=== PATIENT | male | born 1945 | race Caucasian/White ===

== ENCOUNTER 2016-10-16 11:32 | Outpatient (CLI) | payer MEDICARE ==
[~2016-10-16] VITALS: Ht 182.9 cm; Wt 98.5 kg
[~2016-10-16 11:32] MED LIST: ASP81CT PO; ATOR20TA66 PO; BP MED; DULO20CA PO; GBPN300C PO; GLUC-113 PO; HYDR4TAB PO; MORP15TA4 PO; OMEP10CA4 PO; OMG1KC PO; PREG25CA PO; Q10; SSD50T TOP
--- OUTSIDE RECORDS SUMMARY | 2016-10-16 11:37 | XMS REPORT | Continuity of Care Document ---
Author Author [facility] Organization [facility] Address Unknown Phone Unavailable Care Team Providers Care Rn Diabetes Educator Name Role Phone Mxawell Pacheco PCP [phone] Source Comments Some departments are not documenting in the electronic medical record. If you do not see the information that you expected, contact Release of Information in the Health Information Management department at [phone] for further assistance in locating additional records.[facility] Active Allergies and Adverse Reactions No Known Allergies Current Medications Prescription Sig. Disp. Refills Start End Date Status Date atorvastatin (LIPITOR) 80 Take 80 mg by mouth Active mg tablet daily. amLODIPine (NORVASC) 5 mg Take 5 mg by mouth daily. Active tablet OMEPRAZOLE (PRILOSEC PO) Take by mouth. Active TAMSULOSIN HCL (FLOMAX Take by mouth. Active PO) UBIDECARENONE (CO Q-10 Take by mouth. Active PO) ASPIRIN PO Take by mouth. Active ACETAMINOPHEN (TYLENOL Take by mouth. Active PO) MELATONIN PO Take by mouth. Active magnesium citrate oral Take 296 mL by mouth once 1 Bottle 0 10/22/19 10/22/19 Active solution for 1 dose. Take as 17 17 directed day prior to surgery on 10/22/2016. Active Problems Problem Noted Date Prostate cancer (HCC) 07/19/2016 Overview: PSA (07/12/2016)=7.09 ng/mL. TRUS Prostate Vol (07/19/2016)=48.28 mL. PNBx (07/19/2016): cT1c; (R) [place] 3+3=6, 2/6 cores, 5%; Dr. Lerner. (B) Nerve Sparing Robotic Asst Lap Prostatectomy (RALP) -- TBD; Dr. Hammond. L ast Assessment & Plan: I had an extensive consultation with the patient today reviewing the spectrum of prostate cancer treatment options, including the pros and cons and risks and benefits of each. Surgery (RRP, RALP) Radiation (XRT) Risks and complications of surgery, especially stress incontinence and erectile dysfunction reviewed in detail. Differences between robotic prostatectomy and radical retropubic prostatectomy reviewed. Typical benefit of robotic prostatectomy include less blood loss and shorter hospital stay, but otherwise results are similar in regards to oncologic outcome, stress incontinence and erectile dysfunction compared to retropubic prostatectomy. Risks and complications of radiation, reviewed. After careful consideration, the patient would like to proceed with (B) NS RALP --> next available in [place], [place]. (B) Nerve Sparing Robotic Asst Lap Prostatectomy -- 10/23/2016; Dr. Hammond, @ [place], [place]. Possible risks & complications of surgery including but not limited to bleeding, infection, allergic reaction, heart & blood pressure problems, incontinence, erectile dysfunction, bladder neck contracture, urine leak, lymphocele, hernias, anastomotic breakdown, need for percutaneous nephrostomy tube and/ or abdominal drain placement, wound complications, nerve injury due to positioning, injury to nearby contiguous organs or structures, hernias, robot malfunction, conversion to open surgery, and additional surgical risks include, but not limited to DVT, heart attack, stroke, pulmonary embolism, respiratory arrest, & . Pt demonstrates an understanding & wishes to proceed. Surgical consent signed in clinic today. Pre-op instructions provided to pt & will be addressed by anesthesia at [facility] ([place], [place]). Bowel prep instructions specifically reviewed w/ pt, printed & provided on AVS. AVS given to pt. Rx: Mag Citrate handed to pt, as a reminder to order picker/assembler OTC med. Consults: none. All questions answered to his satisfaction. ED (erectile dysfunction) of organic origin Most Recent Encounters Date Type Specialty Providers Description 09/10/2016 Office Visit Urology Esdras Hammond MD Prostate cancer (HCC) (Primary Dx); ED (erectile dysfunction) of organic origin 08/23/2016 Ancillary Radiology Outpatient, Radiologist Diagnosis unknown Orders (Primary Dx) 08/07/2016 Telephone Oncology Esdras Hammond MD Navigation Assessment 07/29/2016 Hospital Radiology Encounter 07/29/2016 Hospital Radiology Encounter Social History Tobacco Use Types Packs/Day Years Used Date Current Some Day Smoker Pipe Smokeless Tobacco: Never Used Alcohol Use Drinks/Week oz/Week Comments Yes 2 Shots of 1.2 liquor Last Filed Vital Signs Vital Sign Reading Time Taken Blood Pressure 123/86 09/10/2016 1:03 PM CHIEF PSYCHOLOGIST Pulse 71 09/10/2016 1:03 PM CHIEF PSYCHOLOGIST Temperature - - Respiratory Rate - - Height 1.829 m (6') 09/10/2016 1:03 PM CHIEF PSYCHOLOGIST Weight 96.888 kg (213 lb 9.6 oz) 09/10/2016 1:03 PM CHIEF PSYCHOLOGIST Body Mass Index 28.96 09/10/2016 1:03 PM CHIEF PSYCHOLOGIST Oxygen Saturation - - Plan of Care Health Maintenance Due Date Last Done Comments Hepatitis C Screening 1945 Physical (Comprehensive) 1953 Exam Pertussis Vaccine 1957 Tetanus Vaccine 1963 Colorectal Cancer 1996 Screening Shingles Vaccine 2006 Prevnar/Pneumovax (#1) 2011 Influenza Vaccine 06/13/2016 Results from Last 3 Months NM PET/CT EXTERNAL IMAGING (07/29/2016 12:15 AM) Narrative This order has been auto finalized and does not contain a result. CT ABD/PEL EXTERNAL IMAGING (07/29/2016) Narrative This order has been auto finalized and does not contain a result.
[2016-10-16] MEDS ORDERED: ATOR80TA76 PO (11:57)
[2016-10-16] MEDS ORDERED: OXYC-465 PO (11:57)
[2016-10-16] MEDS ORDERED: MELA5TAB14 PO (11:57)
[2016-10-16] MEDS ORDERED: PANT40TA3 PO (11:57)
[2016-10-16] MEDS ORDERED: [UNRECOGNIZED DRUG - REMARK] PO (11:57)
[2016-10-16] MEDS ORDERED: UBID100C44 PO (11:57)
[2016-10-16] MEDS ORDERED: AMLO5TAB2 PO (11:57)
[2016-10-16] MEDS ORDERED: OMEP40CA36 PO (11:57)
[2016-10-16] MEDS ORDERED: TAMS0.4C2 PO (11:57)
[2016-10-16 12:11] VITALS: BP 169/118
[2016-10-16 12:59] LABS: BASOPHILS % (AUTO) 1 % (0-10); EOSINOPHILS # (AUTO) 0.1 10^3/uL (0.0-0.3); EOSINOPHILS % (AUTO) 3 % (0-10); LYMPHOCYTES # (AUTO) 1.7 X 10^3 (1.0-4.0); LYMPHOCYTES % (AUTO) 35 % (12-44); MEAN CORPUSCULAR HEMOGLOBIN 30 PG (25-34); MEAN CORPUSCULAR HGB CONC 35 G/DL (32-36); MEAN CORPUSCULAR VOLUME 86 FL (80-99); MEAN PLATELET VOLUME 11.1 FL (7.4-10.4); MONOCYTES # (AUTO) 0.3 X 10^3 (0.0-1.0); MONOCYTES % (AUTO) 7 % (0-12); NEUTROPHILS # (AUTO) 2.6 X 10^3 (1.8-7.8); NEUTROPHILS % (AUTO) 55 % (42-75); PLATELET COUNT 186 10^3/uL (130-400); RED BLOOD COUNT 5.38 10^6/uL (4.35-5.85); RED CELL DISTRIBUTION WIDTH 13.6 % (10.0-14.5); WHITE BLOOD COUNT 4.8 10^3/uL (4.3-11.0)
[2016-10-16 13:15] LABS: ANION GAP 11 MMOL/L (5-14); BLOOD UREA NITROGEN 14 MG/DL (7-18); BUN/CREATININE RATIO 16; CALCIUM 9.5 MG/DL (8.5-10.1); CARBON DIOXIDE 21 MMOL/L (21-32); CHLORIDE 108 MMOL/L (98-107); GFR ESTIMATED > 60; GLUCOSE 112 MG/DL (70-105); SODIUM 140 MMOL/L (135-145)
== END 2016-10-16 14:00 | disposition home or self-care (01) ==
LOC: PREOP 11:32
PROVIDERS: ATTEND Urology
DX: Z01.810 Encounter for preprocedural cardiovascular examination (principal); Z01.812 Encounter for preprocedural laboratory examination; Z11.2 Encounter for screening for other bacterial diseases; C61 Malignant neoplasm of prostate
CPT/HCPCS: 36415; 80048; 85025; 87081; 93005

== ENCOUNTER 2016-10-23 05:54 | Inpatient (IN) | payer MEDICARE ==
[~2016-10-23] VITALS: Ht 182.9 cm; Wt 98.5 kg
[~2016-10-23 05:54] MED LIST changes: +AMLO5TAB2 PO; +ATOR80TA76 PO; +MELA5TAB14 PO; +OMEP40CA36 PO; +OXYC-465 PO; +PANT40TA3 PO; +TAMS0.4C2 PO; +UBID100C44 PO; +[UNRECOGNIZED DRUG - REMARK] PO
--- OUTSIDE RECORDS SUMMARY | 2016-10-23 05:58 | XMS REPORT | Continuity of Care Document ---
Author Author [facility] Organization [facility] Address Unknown Phone Unavailable Care Team Providers Care Staff Research Associate Name Role Phone Maxwell Pacheco PCP [phone] Source Comments Some departments are not documenting in the electronic medical record. If you do not see the information that you expected, contact Release of Information in the Health Information Management department at [phone] for further assistance in locating additional records.[facility] Active Allergies and Adverse Reactions No Known [...] mouth once 1 Bottle 0 10/22/19 10/22/19 solution for 1 dose. Take as 17 17 directed day prior to surgery on 10/22/2016. Active Problems Problem Noted Date Prostate cancer (HCC) 07/19/2016 Overview: PSA (07/12/2016)=7.09 ng/mL. TRUS Prostate Vol (07/19/2016)=48.28 mL. PNBx (07/19/2016): cT1c; (R) [place] 3+3=6, 2/6 cores, 5%; Dr. Lerner. (B) [...] (B) NS RALP --> next available in [place], [place]. (B) Nerve Sparing Robotic Asst Lap Prostatectomy -- 10/23/2016; Dr. Hammond, @ [place], [place]. Possible risks & complications of surgery [...] will be addressed by anesthesia at [facility] ([place], [place]). Bowel prep instructions specifically reviewed w/ pt, printed & provided on AVS. AVS given to pt. Rx: Mag Citrate handed to pt, as a reminder to pickle water pump operator OTC med. Consults: none. All questions answered [...] Taken Blood Pressure 123/86 09/10/2016 1:03 PM HEARING CARE PROFESSIONAL Pulse 71 09/10/2016 1:03 PM HEARING CARE PROFESSIONAL Temperature - - Respiratory Rate - - Height 1.829 m (6') 09/10/2016 1:03 PM HEARING CARE PROFESSIONAL Weight 96.888 kg (213 lb 9.6 oz) 09/10/2016 1:03 PM HEARING CARE PROFESSIONAL Body Mass Index 28.96 09/10/2016 1:03 PM HEARING CARE PROFESSIONAL Oxygen Saturation - - Plan of Care [...]
[2016-10-23] MEDS ORDERED: ceFAZolin 1,000 MG (ANCEF) VIAL ONE (06:19)
[2016-10-23] MEDS ORDERED: NORMAL SALINE (BAXTER MINI) 50 ML IV ONE (06:19)
[2016-10-23 06:39] VITALS: BP 158/90
[2016-10-23] MEDS ORDERED: LIDOCAINE JELLY 2% (XYLOCAINE) 5 ML TUBE ONE (06:40)
[2016-10-23] MEDS ORDERED: ROCURONIUM 50 MG/5 ML (ZEMURON) VIAL IV ONE ×2 (06:40→08:19)
[2016-10-23] MEDS ORDERED: MIDAZOLAM 2 MG/2 ML (VERSED) VIAL ONE (06:40)
[2016-10-23] MEDS ORDERED: DEXAMETHASONE PF 10 MG/ML (DECADRON) VIAL ONE (06:40)
[2016-10-23] MEDS ORDERED: proPOfol 200 MG/20 ML (DIPRIVAN) VIAL IV ONE (06:40)
[2016-10-23] MEDS ORDERED: fentaNYL INJECTION 250 MCG/5 ML AMP ONE (06:40)
[2016-10-23] MEDS ORDERED: LIDOCAINE PF 2% 10 ML (XYLOCAINE) AMP ONE (06:40)
[2016-10-23] MEDS ORDERED: ONDANSETRON 4 MG/2 ML (SDV) Z0FRAN ONE (06:40)
[2016-10-23] MEDS ORDERED: FAMOTIDINE 20MG/2ML IV (PEPCID) IV ONE (06:45)
[2016-10-23] MEDS: LACTATED RINGERS 1,000 ML IV PRN ×2 (06:49→12:44)
[2016-10-23] MEDS ORDERED: ARTIFICIAL TEARS OINT (LACRI-LUBE) 3.5 GM TUBE ONE (06:56)
[2016-10-23] MEDS ORDERED: fentaNYL INJECTION 100 MCG/2 ML AMP ONE (06:57)
[2016-10-23] MEDS ORDERED: ceFAZolin 1 GM/NS 50 ML IVPB IV ONE ×2 (07:00)
[2016-10-23] MEDS ORDERED: fentaNYL INJECTION 100 MCG/2 ML AMP IV ONE (07:15)
[2016-10-23] MEDS ORDERED: ceFAZolin INJECTION 1,000 MG in NORMAL SALINE (BAXTER MINI) 50 ML IV ONE (11:15)
[2016-10-23] MEDS ORDERED: SEVOFLURANE (ULTANE) 15 ML INHAL SOLN ONE (12:08)
[2016-10-23] MEDS ORDERED: LACTATED RINGERS 1,000 ML IV ONE (12:12)
[2016-10-23] MEDS ORDERED: HYDROmorphone (DILAUDID) 2 MG/ML VIAL ONE (12:24)
[2016-10-23] MEDS ORDERED: ONDANSETRON 4 MG/2 ML (SDV) Z0FRAN IVP PRN (12:30)
[2016-10-23] MEDS ORDERED: SIMETHICONE 80 MG (MYLICON) CHEW PO PRN (12:30)
[2016-10-23] MEDS ORDERED: MEPERIDINE (DEMEROL) INJ 50 MG/ML IVP PRN (12:30)
[2016-10-23] MEDS ORDERED: PROMETHAZINE INJ 25 MG/ML (PHENERGAN) AMP IVP PRN (12:30)
[2016-10-23] MEDS ORDERED: ANTACID SUSP 30 ML UDC (MYLANTA) PO PRN (12:30)
[2016-10-23] MEDS ORDERED: DOCUSATE SODIUM 100 MG (COLACE) CAP PO PRN (12:30)
[2016-10-23] MEDS ORDERED: ONDANSETRON 4 MG/2 ML (SDV) Z0FRAN IV PRN (12:30)
[2016-10-23] MEDS: morphine INJ 10 MG/ML 1ML (SYR OR VIAL) IVP PRN ×2 (12:34→12:50)
[2016-10-23] MEDS: morphine INJ 10 MG/ML 1ML (SYR OR VIAL) ONE ×2 (12:34→18:20)
[2016-10-23] MEDS: HYDROmorphone (DILAUDID) 2 MG/ML VIAL IVP PRN ×3 (12:58→13:11)
[2016-10-23] MEDS ORDERED: KETOROLAC 15 MG/ML VIAL ONE (13:52)
[2016-10-23] MEDS: KETOROLAC 30 MG/ML VIAL IV PRN ×2 (14:02→20:22)
--- NOTE | 2016-10-23 14:05 | OPERATIVE REPORT ---
PROCEDURE PHYSICIAN: SAMANTHA KUO DATE OF PROCEDURE: 10/23/2016 PREOPERATIVE DIAGNOSIS: Stage T1C [place] 6 adenocarcinoma of the prostate. POSTOPERATIVE DIAGNOSIS: Stage T1C [place] 6 adenocarcinoma of the prostate. OPERATIVE PROCEDURE: Robot assisted laparoscopic prostatectomy with a bilateral nerve-sparing approach. SURGEON: Katja Kuo RESIDUE FURNACE OPERATOR SURGEON: Dr. Sukhjinder Navarro ANESTHESIA: General endotracheal anesthesia. BLOOD LOSS: 100 mL. COMPLICATIONS: None SPECIMEN: Prostate and seminal vesicles. INDICATIONS FOR THE OPERATION: Mr. Crandall is a 70-year-old gentleman with newly diagnosed low risk prostate cancer. He has a large prostate and some erectile dysfunction and multiple other medical problems but basically had felt that after long counseling he wanted to do a robotic prostatectomy. I went over all of the risk and benefits, advantages and disadvantages of the nerve-sparing approach. He knows that he does not need lymph nodes taken because he has a very low risk cancer. After counseling he has decided to move forward with the operation. All questions were answered to his satisfaction. He signed informed consent, had IV antibiotics and mechanical bowel prep. DESCRIPTION: After this man was prepped and draped in the usual sterile fashion, placed in low lithotomy position, padded throughout on his elbows, hands and legs, I had SCDs applied and IV antibiotics administered, we placed an 18 Tamazight eklutna tip catheter with a 2-0 Vicryl tied on the end of it into his bladder. We then marked out our port sites in the usual fashion, lifted up on the abdominal wall with towel clamps on either side of the supraumbilical region, made a small punch in the midline, introduced the Veress needle into the abdomen. After ensuring we were intraperitoneal using a drip test, we completed insufflation at 15 cm of pressure. We then extended our incision in the midline and placed a non-bladed 10/12 mm trocar into the abdomen. Through this port, we examined intraabdominal contents and found a few adhesions from the sigmoid colon to the left inguinal area. Once I placed the rest of the trocars in the usual fashion, we put the patient in steep Trendelenburg position and docked the robot. I began with my typical instrumentation taking down adhesions and allowing the bowel to drop back toward the head. Then I went across the urachal remnants, followed the medial umbilical ligaments back to the vas deferens. Once I reached the vas deferens, I harvested a piece of that to bolster the bladder neck anastomosis. I then incised the endopelvic fascia and took down the puboprostatic ligaments and realized right away that this is a very large prostate. We used endovascular stapler to staple across the dorsal venous complex and then switched to a 30 degree down orientation of my lens. I then began the dissection between the base of the prostate and the bladder neck until I exposed the Vazquez catheter at which time I saw a fair amount of prostate exposed or extending into the bladder neck. I then introduced a Riley-Marshall just above the pubic bone into the abdomen, and lifted up on the end of the Vicryl suture placing the Vazquez catheter on penile traction. I then went across the posterior bladder neck ensuring we did not injure the ureters and completely dissected the bladder from the base of the prostate until seminal vesicles were exposed. I dissected out the entire seminal vesicles bilaterally and transected the vas deferens 1 cm proximal to their junction with the prostate. I incised the nonbiased fascia down to perirectal fat and basically used one Hem-o-Kate clip on each side and clipped on the vascular pedicle and then transect. I released the Vazquez catheter traction and did a high anterior release on the endopelvic fascia bilaterally, dissected the neurovascular bundles off from the base of the prostate to the apex using scissors only and no electrocautery. Once they were completely released, I switched back to 0 degree lens. I then replaced the Vazquez catheter and took down what was left of the dorsal venous complex and dissected out the longest urethral stump I could. I then transected the urethra, removed the Vazquez catheter and inspected the prostate and found a very clean dissection and it was placed in the EndoCatch bag for later removal. I irrigated the pelvis and saw no significant bleeding and introduced into the abdomen two 8 1/2 inch pieces of 2-0 Monocryl tied together and sutured across a piece of vas deferens. I started at the 6 o'clock position with both sutures and began my anastomosis of the urethral stump to the bladder neck and when I reached the midway point at the 3 and 9 o'clock position of the bladder neck, I stopped and realized I would have to do a bladder neck reconstruction. I could see the ureters throughout and felt that I should reconstruct in a tennis-racquet fashion using 4-0 Monocryl in an interrupted fashion. After [address], I removed that needle from the abdomen and finished my running suture on the left and right side. I transitioned my stitch across the tennis-racquet reconstruction and removed both needles from the abdomen. I then tied across the midline over a 20 Tamazight silastic catheter with 10 cc in the balloon. I tied those down water tight. Made sure that I irrigated with approximately 200 cc's of irrigant twice and saw no leak. I irrigated until the bladder was clear, at which time I then moved the EndoCatch bag to midline for later removal and placed a 19 Tamazight Anatoly drain next to the anastomosis. Brought site in the left lower quadrant and sutured in place with 2-0 silk interrupted suture. We then undocked the robot, removed all port sites, extended our incision in the midline and removed the prostate. I grasped the anterior rectus fascia and closed with 5 sutures of interrupted number 1 Vicryl in a yslyjq-nw-sbrnh fashion. After ensuring we had not grabbed any bowel underneath, we tied down the abdominal wall, sutures were water tight, irrigated all wounds and closed the skin using 4-0 undyed Monocryl ion a running subcuticular fashion. I then placed Dermabond on all wounds, extubated the patient. Transported him to recovery in excellent condition. Job ID: [id number] Dictated Date: 10/23/2016 12:22:09 Protection Engineer Date: 10/23/2016 13:13:37 / priyanka
[2016-10-23] MEDS: HYDROcodone/APAP 7.5 MG/325 MG (LORTAB, LORCET PLUS) TABLET PO PRN ×2 (15:11→21:16)
[2016-10-23] MEDS: morphine INJ 4 MG/ML 1 ML (VIAL/SYRINGE) IVP PRN ×3 (15:11→22:37)
[2016-10-23 16:00] VITALS: BP 135/76
[2016-10-23] MEDS: LACTATED RINGERS 1,000 ML IV SCH ×2 (18:19→23:18)
[2016-10-23 20:00] VITALS: BP 119/85
[2016-10-23] MEDS ORDERED: MELATONIN 3 MG TABLET PO PRN (21:00)
[2016-10-23] MEDS: BACITRACIN OINTMENT 28 GM TUBE TOP SCH (21:17)
[2016-10-23 23:03] VITALS: BP 115/68
[2016-10-24] MEDS: morphine INJ 4 MG/ML 1 ML (VIAL/SYRINGE) IVP PRN ×4 (01:45→14:29)
[2016-10-24 04:00] VITALS: BP 133/82
[2016-10-24] MEDS: LACTATED RINGERS 1,000 ML IV SCH (04:24)
[2016-10-24] MEDS: KETOROLAC 30 MG/ML VIAL IV PRN (05:48)
[2016-10-24] MEDS: HYDROcodone/APAP 7.5 MG/325 MG (LORTAB, LORCET PLUS) TABLET PO PRN ×2 (07:50→13:27)
[2016-10-24] MEDS: BACITRACIN OINTMENT 28 GM TUBE TOP SCH (07:50)
[2016-10-24 08:00] VITALS: BP 133/93
[2016-10-24] MEDS ORDERED: LEVOFLOXACIN 250 MG TAB (LEVAQUIN) PO SCH (09:00)
[2016-10-24] MEDS ORDERED: CATHETER FLUSH 10 ML SYR IV PRN (09:45)
[2016-10-24] MEDS ORDERED: OMEP40CA36 PO (10:08)
--- NOTE | 2016-10-24 10:28 | Discharge Inst-Urology ---
Discharge Inst-Urology Discharge Medications New, Converted, or Re-newed RX: RX given to Patient/Fam Patient Instructions/Follow Up Plan DC Drain and discharge on leg bag day time and large bag night time with instructions. Come to office in 2 weeks to DC Vazquez. Please make appointment to been seen in office by me in 4weeks. Rest till then. Keep bowels soft and moving. Showers, no bath. Increase oral fluids for 48 hours and then as needed. Diet and Activity as tolerated. If questions or concerns contact your physician Or seek help at emergency department. Other Inst to Patient Stay off ASA till seen in 4 weeks SONIDO CHESTER MD Oct 24, 2016 10:28
[2016-10-24] MEDS ORDERED: CIPR-225 PO (11:35)
[2016-10-24] MEDS ORDERED: OXYC-465 PO (11:37)
[2016-10-24 12:55] VITALS: BP 140/74
--- NOTE | 2016-10-24 13:20 | Anesthesia-General Post-Op ---
General Patient Condition Mental Status/LOC: Same as Preop Cardiovascular: Satisfactory Nausea/Vomiting: Absent Respiratory: Satisfactory Pain: Controlled Complications: Absent Post Op Complications Complications None Follow Up Care/Instructions Patient Instructions None needed. Anesthesia/Patient Condition Patient Condition Patient is doing well, no complaints, stable vital signs, no apparent adverse anesthesia problems. No complications reported per nursing. WILMA ENRIQUEZ CRNA Oct 24, 2016 13:20
== END 2016-10-24 16:00 | disposition home or self-care (01) | DRG 708 ==
LOC: SURGICAL 05:54 → SURG 05:55 → 4TH 12:30
PROVIDERS: ADMIT Urology; ATTEND Urology
PROC: 0VT34ZZ Resection of Bilateral Seminal Vesicles, Percutaneous Endoscopic Approach (ICD-10-PCS; 2016-10-23)
PROC: 8E0W4CZ Robotic Assisted Procedure of Trunk Region, Percutaneous Endoscopic Approach (ICD-10-PCS; 2016-10-23)
PROC: 0VT04ZZ Resection of Prostate, Percutaneous Endoscopic Approach (ICD-10-PCS; principal; 2016-10-23 07:36)
DX: C61 Malignant neoplasm of prostate (principal); N52.9 Male erectile dysfunction, unspecified; I10 Essential (primary) hypertension; E78.5 Hyperlipidemia, unspecified; K21.9 Gastro-esophageal reflux disease without esophagitis; N40.0 Benign prostatic hyperplasia without lower urinary tract symptoms
CPT/HCPCS: 86850; 86900; 86901; 88309; 94664

== ENCOUNTER → 2016-12-31 | Outpatient (CLI) | payer MEDICARE ==
[~2016-12-31] MED LIST changes: +CIPR-225 PO
--- NOTE | 2016-12-31 14:30 | Diagnostic Imaging Report ---
PROCEDURE: CT lumbar spine without contrast. TECHNIQUE: Multiple contiguous axial images were obtained through the lumbar spine without the use of intravenous contrast. Sagittal and coronal reformations were then performed. INDICATION: Back pain, bilateral leg numbness and tingling. Study interpreted in correlation with MRI lumbar spine 03/27/2015 as well as correlated with abdominopelvic CT performed 07/29/2016. FINDINGS: Reconstruction views revealed lumbar vertebral statures to be stable and aligned anatomically unchanged from prior. No endplate destruction or acute-appearing fracture is identified. There is no spondylolysis defect. Shahid-lumbar spondylosis with disc space narrowing, endplate sclerosis and osteophytes is most severe eccentrically to the right at the L4-L5 level and eccentrically to the left at the L2-L3 level. These appear very similar when compared to the prior exam. The partially visualized sacrum revealed no appreciable fracture or evidence for insufficiency injury. Right greater than left SI joint arthrosis chronic. No paravertebral mass, hemorrhage or fluid collection. No acute-appearing epidural abnormality. T12-L1: Osteophyte disc material is oriented anteriorly at this level. There is no stenosis. L1-L2: Minimal endplate osteophytes and disc material is anteriorly directed without stenosis to the canal, neuroforamina or lateral recess. L2-L3: Endplate osteophytes and bulging disc material are asymmetric greater left. There is mild thickening of the ligamenta flava and facet arthrosis. Findings mildly stenose the central canal and result in a mild degree of left neuroforaminal narrowing. This is similar to the prior. L3-L4: There is mild thickening of the ligamenta flava, facet arthrosis, disc bulge and endplate osteophytes circumferentially resulting in a mild degree of canal stenosis and minimal biforaminal narrowing. L4-L5: Endplate osteophytes and bulging disc material with ligamentum thickening and facet arthrosis result in mild right and minimal left foraminal stenosis in addition to mild to moderate canal stenosis. L4-L5: There is moderate right and mild to moderate left neuroforaminal stenosis predominantly owing to endplate osteophytes and hypertrophic facet arthrosis. There is a mild degree of spinal canal narrowing. No substantial change from prior MRI. IMPRESSION: No significant change from an MRI performed 03/27/2015. No fracture or malalignment. No acute-appearing abnormality. No high-grade or severe stenoses. Multilevel canal and foraminal narrowing of varying degrees of severity listed level by level above. Dictated by: Dictated on workstation # [id number]
== END ==
LOC: RAD 14:01
PROVIDERS: ATTEND Nurse Practitioner Family
DX: M48.06 Spinal stenosis, lumbar region (principal)
CPT/HCPCS: 72131

== ENCOUNTER 2017-05-20 14:20 | Outpatient (CLI) | payer MEDICARE ==
[~2017-05-20] VITALS: Ht 182.9 cm; Wt 93.6 kg
[2017-05-20] MEDS ORDERED: FLUO20CA42 PO (14:32)
[2017-05-20] MEDS ORDERED: ASPI-999 PO (14:32)
[2017-05-20 14:34] VITALS: BP 135/89
[2017-05-23] MEDS ORDERED: HYDR-3820 PO (11:05)
== END 2017-05-20 14:49 | disposition home or self-care (01) ==
LOC: PREOP 14:20
PROVIDERS: ATTEND Surgery
DX: Z01.818 Encounter for other preprocedural examination (principal); D17.79 Benign lipomatous neoplasm of other sites
CPT/HCPCS: 87081

== ENCOUNTER 2017-05-23 08:50 | Day surgery (SDC) | payer MEDICARE ==
[~2017-05-23] VITALS: Ht 182.9 cm; Wt 93.6 kg
[~2017-05-23 08:50] MED LIST changes: +ASPI-999 PO; +FLUO20CA42 PO
--- OUTSIDE RECORDS SUMMARY | 2017-05-23 08:56 | XMS REPORT | Clinical Summary ---
Author Author [facility] Organization [facility] Address Unknown Phone Unavailable Care Team Providers Care President And Chief Commercial Officer Name Role Phone PCP Unavailable Source Comments Some departments are not documenting in the electronic medical record. If you do not see the information that you expected, contact Release of Information in the Health Information Management department at [phone] for further assistance in locating additional records.[facility] Allergies No Known Allergies Current Medications Prescription Sig. [...] PO) MELATONIN PO Take by mouth. Active oxybutynin XL (DITROPAN Take 1 Tab by mouth 90 Tab 3 10/29/19 Active XL) 10 mg daily. Do not cut/ crush/ 17 tabletIndications: chew Prostate cancer (HCC) Active Problems Problem Noted Date Prostate cancer (HCC) 07/19/2016 Overview: PSA (07/12/2016)=7.09 ng/mL. TRUS Prostate Vol (07/19/2016)=48.28 mL. PNBx (07/19/2016): cT1c; (R) [place] 3+3=6, 2/6 cores, 5%; Dr. Lerner. (B) [...] (B) NS RALP --> next available in [place], [place]. (B) Nerve Sparing Robotic Asst Lap Prostatectomy -- 10/23/2016; Dr. Hammond, @ [place], [place]. Possible risks & complications of surgery [...] be addressed by anesthesia at [facility] ([place], [place]). Bowel prep instructions specifically reviewed w/ pt, printed & provided on AVS. AVS given to pt. Rx: Mag Citrate handed to pt, as a reminder to shrimp picker OTC med. Consults: none. All questions answered to his satisfaction. ED (erectile dysfunction) of organic origin Family History Medical History Relation Name Comments Cancer-Prostate Brother Cancer-Prostate Brother Heart Attack Other Relation Name Status Comments Brother Brother Other Social History Tobacco Use Types Packs/Day Years Used Date Current Some Day Smoker Pipe Smokeless Tobacco: Never Used Alcohol Use Drinks/Week oz/Week Comments Yes 2 Shots of 1.2 liquor Sex Assigned at Date Recorded Not on file Last Filed Vital Signs Vital Sign Reading Time Taken Blood Pressure 123/86 09/10/2016 1:03 PM VENDING STAND SUPERVISOR Pulse 71 09/10/2016 1:03 PM VENDING STAND SUPERVISOR Temperature - - Respiratory Rate - - Oxygen Saturation - - Inhaled Oxygen - - Concentration Weight 96.9 kg (213 lb 9.6 oz) 09/10/2016 1:03 PM VENDING STAND SUPERVISOR Height 182.9 cm (6') 09/10/2016 1:03 PM VENDING STAND SUPERVISOR Body Mass Index 28.97 09/10/2016 1:03 PM VENDING STAND SUPERVISOR Plan of Treatment Health Maintenance Due Date Last Done Comments HEPATITIS C SCREENING 1945 PHYSICAL (COMPREHENSIVE) 1953 EXAM PERTUSSIS VACCINE 1957 TETANUS VACCINE 1963 COLORECTAL CANCER 1996 SCREENING SHINGLES VACCINE 2006 ABDOMINAL AORTIC ANEURYSM 2011 SCREENING PREVNAR/PNEUMOVAX (#1) 2011 INFLUENZA VACCINE 06/13/2017 Results Not on filefrom Last 3 Months
[2017-05-23] MEDS: LACTATED RINGERS 1,000 ML IV PRN ×2 (09:10→11:38)
[2017-05-23] MEDS ORDERED: ceFAZolin 2 GM/NS 50 ML IV ONE (09:15)
[2017-05-23 09:19] VITALS: BP 146/86
--- NOTE | 2017-05-23 10:04 | Progress Note-Pre Operative ---
Pre-Operative Progress Note H&P Reviewed The H&P was reviewed, patient examined and no changes noted. Date Seen by Provider: May 14, 2017 Time Seen by Provider: 11:00 Date H&P Reviewed: May 23, 2017 Time H&P Reviewed: 10:04 Pre-Operative Diagnosis: lipoma right axilla/chest wall MANINDER CHURCH MD May 23, 2017 10:04 am
[2017-05-23] MEDS ORDERED: LACTATED RINGERS 1,000 ML IV ONE ×2 (10:39→11:24)
[2017-05-23] MEDS ORDERED: ONDANSETRON 4 MG/2 ML (SDV) Z0FRAN ONE (10:39)
[2017-05-23] MEDS ORDERED: SEVOFLURANE (ULTANE) 15 ML INHAL SOLN ONE (10:39)
[2017-05-23] MEDS ORDERED: proPOfol 200 MG/20 ML (DIPRIVAN) VIAL IV ONE (10:39)
[2017-05-23] MEDS ORDERED: DEXAMETHASONE PF 10 MG/ML (DECADRON) VIAL ONE (10:39)
[2017-05-23] MEDS ORDERED: fentaNYL INJECTION 100 MCG/2 ML AMP ONE (10:39)
[2017-05-23] MEDS ORDERED: MIDAZOLAM 2 MG/2 ML (VERSED) VIAL ONE (10:40)
[2017-05-23] MEDS ORDERED: BUP/EPI 0.5% 1:200,000 (MARCAINE) 10ML VIAL IJ ONE (10:45)
[2017-05-23] MEDS ORDERED: HYDR-3820 PO (11:05)
--- NOTE | 2017-05-23 11:06 | Discharge Inst-Simple/Standard ---
Discharge Inst-Standard Discharge Medications New, Converted or Re-Newed RX: RX on Chart Patient Instructions/Follow Up Plan of Care/Instructions/FU: Dressings off in 48 hours. Follow-up in 3 weeks. Activity as Tolerated: Yes Discharge Diet: No Restrictions MANINDER CHURCH MD May 23, 2017 11:06 am
--- NOTE | 2017-05-23 11:40 | Operative Report ---
Operative Report Date of Procedure/Surgery May 23, 2017 Surgeon (s) MANINDER CHURCH MD Technical Aid (s): Not applicable Post-Operative Diagnosis Intramuscular lipoma of right axilla8 cm Procedure Performed Excision Description of Procedure Anesthesia Type: General Estimated blood loss (mL): Minimal Specimen(s) collected/removed lipoma Description of the Procedure Indication for procedure:This gentleman presented with a symptomatic, large lipoma along the anterior aspect of his right axilla. He was offered excision under general anesthetic. Informed consent was obtained after reviewing the operative details and complications of postoperative hematoma, wound infection and recurrence of the lipoma. Description of the procedure: He was placed supine on the operating table and general anesthesia induced. 2 g of Ancef were administered intravenously as prophylaxis against wound infection. Sequential compression devices were placed around his legs, to minimize the risk of venous thrombosis. Right axilla was prepared and draped in the usual sterile manner. Pre-emptive analgesia was established using 0.25 percent Marcaine with epinephrine. An incision about 9 cm long was made, inferior to the axillary hairline and the lipoma, which was found to be intermuscular in nature and multilobulated, excised intact. Hemostasis was achieved using cautery and the area irrigated with saline. The incision was then closed using 3-0 Vicryl for the subcutaneous tissue and a 4-0 Vicryl for skin, in a subcuticular fashion. He tolerated the procedure well, was extubated in the operating room and taken to the recovery room in a stable condition. Findings of the Procedure see operative report Allergies and Home Medications Allergies Coded Allergies: No Known Drug Allergies (Unverified , 05/20/17) Home Medications Amlodipine Besylate 5 Mg Tablet, 5 MG PO DAILY, (Reported) Aspirin 81 Mg Tab.chew, 81 MG PO DAILY, (Reported) Fluoxetine HCl 20 Mg Capsule, 20 MG PO DAILY, (Reported) Hydrocodone/Acetaminophen 1 Each Tablet, 1 TAB PO Q4H PRN for PAIN-MILD TO MODERATE, #20 Ref 0 Prescribed by: MANINDER CHURCH on 05/23/17 1105 Oxycodone HCl/Acetaminophen 1 Each Tablet, 1-2 EACH PO Q4H, #30 Prescribed by: CASANDRA LEIJA on 10/24/16 1137 Pantoprazole Sodium 40 Mg Tablet.dr, 40 MG PO DAILY, (Reported) Ubidecarenone 100 Mg Capsule, 100 MG PO DAILY, (Reported) MANINDER CHURCH MD May 23, 2017 11:40 am
[2017-05-23] MEDS: morphine INJ 10 MG/ML 1ML (SYR OR VIAL) IVP PRN ×2 (12:00→12:05)
[2017-05-23] MEDS ORDERED: ONDANSETRON 4 MG/2 ML (SDV) Z0FRAN IVP PRN (12:00)
[2017-05-23 12:35] VITALS: BP 129/71
[2017-05-23 13:05] VITALS: BP 131/74
[2017-05-23] MEDS ORDERED: HYDROcodone/APAP 10 MG/325 MG (LORTAB) TAB PO ONE (13:15)
[2017-05-23 13:35] VITALS: BP 144/89
[2017-05-23 13:38] VITALS: BP 144/89
== END 2017-05-23 13:38 | disposition home or self-care (01) ==
LOC: SDC 08:50
PROVIDERS: ATTEND Surgery
DX: D17.21 Benign lipomatous neoplasm of skin and subcutaneous tissue of right arm (principal); I10 Essential (primary) hypertension; F17.290 Nicotine dependence, other tobacco product, uncomplicated; G62.9 Polyneuropathy, unspecified; Z79.82 Long term (current) use of aspirin; Z79.899 Other long term (current) drug therapy

== ENCOUNTER 2017-09-03 08:55 | Day surgery (SDC) | payer MEDICARE ==
[2017-09-03] VITALS (12 sets, daily range): BP systolic 132–161; BP diastolic 76–104
[~2017-09-03] VITALS: Ht 182.9 cm; Wt 93.6 kg
[~2017-09-03 08:55] MED LIST changes: +HYDR-3820 PO
--- OUTSIDE RECORDS SUMMARY | 2017-09-03 09:00 | XMS REPORT | Clinical Summary ---
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 If you do not see the information that you expected, contact Release of Information in the Health Information Management department at [phone] for further assistance in locating additional records.[facility] Allergies No Known Allergies Current Medications [...] Vol (07/19/2016)=48.28 mL. PNBx (07/19/2016): cT1c; (R) [place] 3+3=6, 2/6 cores, 5%; Dr. Lerner. (B) [...] (B) NS RALP --> next available in [place], [place]. (B) Nerve Sparing Robotic Asst Lap Prostatectomy -- 10/23/2016; Dr. Hammond, @ [place], [place]. Possible risks & complications of surgery [...] be addressed by anesthesia at [facility] ([place], [place]). Bowel prep instructions specifically reviewed w/ pt, printed & provided on AVS. AVS given to pt. 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 Consults: none. All questions [...] Taken Blood Pressure 123/86 09/10/2016 1:03 PM ALIGNER Pulse 71 09/10/2016 1:03 PM ALIGNER Temperature - - Respiratory Rate - - Oxygen Saturation - - Inhaled Oxygen - - Concentration Weight 96.9 kg (213 lb 9.6 oz) 09/10/2016 1:03 PM ALIGNER Height 182.9 cm (6') 09/10/2016 1:03 PM ALIGNER Body Mass Index 28.97 09/10/2016 1:03 PM ALIGNER Plan of Treatment Health Maintenance Due Date Last Done Comments HEPATITIS C SCREENING 1945 PHYSICAL (COMPREHENSIVE) 1953 EXAM PERTUSSIS VACCINE 1957 TETANUS VACCINE 1963 COLORECTAL CANCER 1996 SCREENING SHINGLES VACCINE 2006 ABDOMINAL AORTIC ANEURYSM 2011 SCREENING PREVNAR/PNEUMOVAX (#1) 2011 INFLUENZA VACCINE 05/13/2017 Results Not on filefrom Last 3 Months
[2017-09-03 09:20] LABS: MEAN PLATELET VOLUME 11.5 FL (7.4-10.4); RED BLOOD COUNT 5.25 10^6/uL (4.35-5.85); WHITE BLOOD COUNT 8.5 10^3/uL (4.3-11.0)
[2017-09-03 09:58] LABS: INR 0.9 (0.8-1.4); PROTHROMBIN TIME PATIENT 12.4 SEC (12.2-14.7)
--- NOTE | 2017-09-03 11:33 | Discharge Instructions ---
Discharge Instructions Home Medicaitons Changes Hold any current blood thinner home medications for [24 hours]. ARNOLDO MALHOTRA MD Sep 03, 2017 11:33
[2017-09-03] MEDS ORDERED: HYDROcodone/APAP 5 MG/325 MG (LORTAB) TAB PO ONE (11:45)
[2017-09-03] MEDS ORDERED: IOHEXOL 240 MGI/ML 20 ML (OMNIPAQUE) VIAL IV ONE (11:45)
--- NOTE | 2017-09-03 15:44 | Diagnostic Imaging Report ---
EXAMINATION: Fluoroscopic guided lumbar puncture with intrathecal contrast injection and myelogram performed. INDICATION: Back pain. FLUOROSCOPY TIME: One minute and 18 seconds CONSENT: Informed consent was obtained from the patient. The risks, benefits, potential complications and alternatives were reviewed and all questions answered to the patient's satisfaction. PROCEDURE: After sterile preparation and draping, 1% lidocaine was utilized for local anesthesia. Under fluoroscopic guidance, a 22-gauge spinal needle is advanced into the spinal canal at the level of L5/S1. Clear CSF is obtained. Under fluoroscopic visualization, 12 cc of intrathecal Omnipaque-240 is administered into the thecal sac. The patient tolerated the procedure well with no immediate complications. FINDINGS: Myelogram images demonstrate opacification of the thecal sac. . IMPRESSION: Successful fluoroscopic guided intrathecal contrast injection with myelogram obtained and a lumbar CT myelogram to follow. Dictated by: Dictated on workstation # [id number]
--- NOTE | 2017-09-03 16:02 | Diagnostic Imaging Report ---
PROCEDURE: CT lumbar spine with contrast. TECHNIQUE: Multiple contiguous axial images were obtained through the lumbar spine after the intrathecal administration of contrast. Sagittal and coronal reformations were then performed. INDICATION: Back pain. FINDINGS: The alignment of the posterior spinal line is satisfactory. The vertebral body heights appear preserved. There is moderate disc height loss at L4/5 level with minimal posterior osteophytes seen. There is moderate opacification of the thecal sac with contrast. This lines the cauda equina and conus medullaris which appear unremarkable. T12/L1: No disc herniation, no spinal canal or foraminal stenosis. L1/2: No disc herniation, no spinal canal or foraminal stenosis. L2/3: There is a diffuse disc bulge with minimal posterior osteophyte along the left paracentral aspect. There is mild to moderate facet hypertrophy. No central canal or lateral recess stenosis. No significant foraminal narrowing. L3/4: There is a diffuse disc bulge and moderate facet hypertrophy. No central canal or lateral recess stenosis. No foraminal narrowing. L4/5: There is moderate disc height loss and diffuse disc bulge seen. There is moderate facet hypertrophy. No central canal, or lateral recess stenosis. The foramina demonstrates mild narrowing only on the right side. There are prominent right-sided osteophytes seen abutting the exiting right L4 spinal nerve after it exits the foramen. L5/S1: There is a diffuse disc bulge and posterior osteophytes are seen more prominent along the posterior lateral aspect bilaterally. There is mild facet hypertrophy. No central canal or lateral recess stenosis. The foramina demonstrate bilateral moderate stenosis. IMPRESSION: No significant spinal canal stenosis at any level. There is multilevel foraminal stenosis as described. There is also prominent right lateral osteophytes at L4/5 level abutting the exiting L4 spinal nerve after exiting the foramen. Dictated by: Dictated on workstation # [id number]
== END 2017-09-03 15:00 | disposition home or self-care (01) ==
LOC: RAD 08:55
PROVIDERS: ATTEND Orthopaedic Surgery Orthopaedic Surgery of the Spine
DX: M99.73 Connective tissue and disc stenosis of intervertebral foramina of lumbar region (principal); M51.17 Intervertebral disc disorders with radiculopathy, lumbosacral region; M89.38 Hypertrophy of bone, other site
CPT/HCPCS: 36415; 62284; 72132; 72265; 77002; 85027; 85610; 85730

== ENCOUNTER → 2018-05-13 | Outpatient (CLI) | payer MEDICARE | LOC: LAB 13:24 | DX: Z86.13 Personal history of malaria (principal) | CPT/HCPCS: 36415; 87207 ==

== ENCOUNTER → 2020-02-25 | Outpatient (CLI) | payer MEDICARE ==
[~2020-02-25] MED LIST changes: +ACHYD1T PO; -AMLO5TAB2 PO; +AMLO5TAB9 PO; -HYDR-3820 PO; +OMEP40CA27 PO; -OMEP40CA36 PO
== END ==
LOC: LABNPT 09:17
DX: Z11.59 Encounter for screening for other viral diseases (principal)
CPT/HCPCS: 87635

== ENCOUNTER → 2021-02-28 | Outpatient (CLI) | payer MEDICARE ==
[~2021-02-28] MED LIST changes: +AMLO-250 PO; -AMLO5TAB9 PO; -OXYC-465 PO; +OXYC-556 PO; -PANT40TA3 PO; +PANT40TA52 PO
== END ==
LOC: LABNPT 06:51
PROVIDERS: ATTEND Orthopaedic Surgery
DX: Z01.812 Encounter for preprocedural laboratory examination (principal); Z20.822 Contact with and (suspected) exposure to COVID-19
CPT/HCPCS: 87635

== ENCOUNTER → 2021-03-28 | Outpatient (CLI) | payer MEDICARE ==
--- NOTE | 2021-03-28 12:32 | Diagnostic Imaging Report ---
PROCEDURE: US Venous Lower Ext Shay. TECHNIQUE: Multiple real-time grayscale images were obtained over the lower extremities in various projections, bilaterally. Additional duplex Doppler and color Doppler images were also obtained. INDICATION: Bilateral lower extremity swelling and pain. COMPARISON: None. FINDINGS: The bilateral common femoral vein, femoral vein, deep femoral vein, and popliteal vein are normal in appearance. These vessels show normal compressibility, color flow and doppler augmentation. The visualized deep calf veins demonstrate no distinct intraluminal thrombus. Large Thomason's cyst is seen in the right popliteal region measuring 2.6 x 5.7 x 1.8 cm. IMPRESSION: 1. No sonographic evidence of deep venous thrombosis in the bilateral lower extremities. 2. Prominent right Thomason's cyst. Dictated by: Dictated on workstation # [id number]
== END ==
LOC: RAD 11:18
DX: I82.409 Acute embolism and thrombosis of unspecified deep veins of unspecified lower extremity (principal)
CPT/HCPCS: 93970